=== PATIENT | female | born 1945 | race Caucasian/White ===

== ENCOUNTER → 2017-08-04 10:54 | Outpatient (CLI) | payer MEDICARE, OTHER, SELFPAY ==
--- NOTE | 2017-08-04 | DI.MG.S_ITS ---
BILATERAL DIGITAL SCREENING MAMMOGRAM 3D/2D WITH CAD: 08/04/2017 CLINICAL: Routine screening. Family history of breast cancer. Comparison is made to exams dated: 10/31/2015 mammogram, 09/28/2014 mammogram, and 09/26/2013 mammogram - [facility]. The tissue of both breasts is extremely dense, which lowers the sensitivity of mammography. Current study was also evaluated with a Computer Aided Detection (CAD) system. No significant masses, calcifications, or other findings are seen in either breast. There has been no significant interval change. IMPRESSION: NEGATIVE There is no mammographic evidence of malignancy. A 1 year screening mammogram is recommended. This exam was interpreted at Station ID: [id number]. NOTE: For mammograms, a report in lay terms will be sent to the patient. Approximately 15% of breast malignancies will not be visualized mammographically. In the management of a palpable breast mass, a negative mammogram must not discourage biopsy of a clinically suspicious lesion. Electronically Signed By: Sharmin barr/shyla:08/04/2017 12:32:04 copy to: RAY SOUZA letter sent: Normal Exam ACR BI-RADS Category 1: Negative 3341F
== END ==
PROVIDERS: PCP Internal Medicine; Visit Provider Internal Medicine
DX: Z12.31 Encounter for screening mammogram for malignant neoplasm of breast (principal); Z80.3 Family history of malignant neoplasm of breast
CPT/HCPCS: 77063; 77067

== ENCOUNTER → 2018-11-10 14:42 | Outpatient (CLI) | payer MEDICARE, OTHER, SELFPAY ==
--- NOTE | 2018-11-10 | DI.MG.S_ITS ---
BILATERAL DIGITAL SCREENING MAMMOGRAM 3D/2D WITH CAD: 11/10/2018 CLINICAL: Routine screening. Family history of breast cancer. Comparison is made to exams dated: 08/04/2017 mammogram, 10/31/2015 mammogram, 09/28/2014 mammogram, and 09/26/2013 mammogram - [facility]. The tissue of both breasts is extremely dense, which lowers the sensitivity of mammography. Current study was also evaluated with a Computer Aided Detection (CAD) system. No significant masses, calcifications, or other findings are seen in either breast. There has been no significant interval change. IMPRESSION: NEGATIVE There is no mammographic evidence of malignancy. A 1 year screening mammogram is recommended. This exam was interpreted at Station ID: [id number]. NOTE: For mammograms, a report in lay terms will be sent to the patient. Approximately 15% of breast malignancies will not be visualized mammographically. In the management of a palpable breast mass, a negative mammogram must not discourage biopsy of a clinically suspicious lesion. Electronically Signed By: Jacobo weinstein/shyla:11/10/2018 19:07:02 copy to: RAY SOUZA letter sent: Normal Exam ACR BI-RADS Category 1: Negative 3341F
== END ==
PROVIDERS: PCP Internal Medicine; Visit Provider Internal Medicine
DX: Z12.31 Encounter for screening mammogram for malignant neoplasm of breast (principal); Z80.3 Family history of malignant neoplasm of breast; M81.0 Age-related osteoporosis without current pathological fracture; Z78.0 Asymptomatic menopausal state; Z82.62 Family history of osteoporosis
CPT/HCPCS: 77063; 77067; 77080; 77081

== ENCOUNTER → 2020-10-09 13:48 | Outpatient (CLI) | payer MEDICARE, OTHER, SELFPAY ==
--- NOTE | 2020-10-09 | DI.CT.S_ITS ---
PROCEDURE: CT ABDOMEN WO/W CON INDICATIONS: Cyst of kidney TECHNIQUE: Optional 5 mm thick noncontrast images acquired from the diaphragm to the iliac crests. After the administration of intravenous contrast, 5 mm thick images again acquired from the diaphragm to the iliac crests in the arterial and urographic phases. 5 mm thick coronal and sagittal reformats were then acquired. For radiation dose reduction, the following was used: automated exposure control, adjustment of mA and/or kV according to patient size. COMPARISON: CR, CHEST 2 VIEW, 11/16/2012, 12:52. [facility], RG, CT THORAX WITH CONTRAST, 04/16/2005, 12:20. [facility], CT, THORAX WITH CONTRAST, 11/21/2008, 9:31. [facility], US, US RENAL COMPLETE, 08/23/2020, 14:21. [facility], CT, CT KUB, 08/01/2020, 11:41. FINDINGS: Image quality: Excellent. Lung bases: Bronchiectasis and mucous plugging at the right lung base. There is a new mucous plug at the posterior aspect in the short-term interval. The bronchiectasis is progressed compared to 2008. No pleural effusion. Small hiatal hernia. Genitourinary: Right kidney inferior pole enhancing mass measuring 5 x 4.8 cm, (5/29). No abrupt washout. The lesion is mostly exophytic. The lesion has a circumscribed margin and is fairly homogeneous. No calcifications are seen within the mass. No hydronephrosis. A few additional simple appearing renal cysts bilaterally. Several cortical hypodensities which are too small to further characterize. There is a nonobstructing calculus at the right renal hilum measuring 0.6 cm, (2/27). Other solid organs: Liver is normal in size and enhancement. A simple cyst at the inferior right lobe of the liver. Gallbladder is not distended. No calcified gallstones. No significant biliary ductal dilatation. There is a small cyst at the tail the pancreas measuring 1.3 cm, (3/18). No significant pancreatic ductal dilatation seen. Spleen is normal in size and enhancement. No adrenal nodules. Peritoneum and bowel: Unenhanced bowel loops are normal in wall thickness and caliber. Prominent stool in the right colon. No free fluid or air. Nodes and vessels: No retroperitoneal or mesenteric adenopathy by size criteria. Aorta and inferior vena cava are normal in caliber. Bones: No suspicious bony lesions. Severe scoliosis. Miscellaneous: No ventral hernias. IMPRESSION: 1. Right kidney inferior pole exophytic solid enhancing mass measuring 5 cm. Renal cell carcinoma until proven otherwise. -MRI renal protocol may be helpful for further characterization. Ultrasound or CT-guided biopsy could also be considered. 2. Cylindrical bronchiectasis at the right lung base. This has progressed compared to 2009. There is associated mucous plugging. -CT of the chest to evaluate the lungs and left upper lobe abnormality seen on remote CT is recommended if not recently performed. 3. Small cyst at the distal tail the pancreas measuring 1.3 cm. This could represent a small IPMN. -MRI would also be helpful for further characterization. 4. Severe scoliosis. 5. Small nonobstructing calculus in the right kidney. Dictated by: Jacobo Novak M.D. on 10/09/2020 at 14:36 Approved by: Jacobo Novak M.D. on 10/09/2020 at 15:09
== END ==
PROVIDERS: PCP Internal Medicine; Referring Provider Urology; Visit Provider Urology
DX: N28.1 Cyst of kidney, acquired (principal); C64.1 Malignant neoplasm of right kidney, except renal pelvis; J47.9 Bronchiectasis, uncomplicated; K86.2 Cyst of pancreas; M41.9 Scoliosis, unspecified
CPT/HCPCS: 74170

== ENCOUNTER → 2022-10-09 | Outpatient (CLI) | payer MEDICARE, OTHER, SELFPAY ==
--- NOTE | 2022-10-09 | DI.RAD.S_ITS ---
Bone Density Report Name: KANDY MCGOWAN Age: 77 Sex: Female Ethnicity: White Date of : 1945 Indication: postmenopausal; screening for osteoporosis; Referring Provider: MARIANA ESCOBAR Study: Bone densitometry was performed. Exam Date: October 09, 2022 Accession number: [id number] Bone Density: Region BMD T-score Z-score Classification Femoral Neck (Left) 0.524 -2.9 -0.7 Osteoporosis Total Hip (Left) 0.690 -2.1 -0.2 Osteopenia Femoral Neck (Right) 0.634 -1.9 0.2 Osteopenia Total Hip (Right) 0.724 -1.8 0.1 Osteopenia Total Hip Mean 0.707 -2.0 -0.1 Osteopenia Total Forearm (Left) 0.389 -3.5 -0.8 Osteoporosis 1/3 Forearm (Left) 0.541 -2.5 0.3 Osteoporosis UD Forearm (Left) 0.239 -3.5 -1.5 Osteoporosis World Health Organization criteria for BMD impression classify patients as: Normal (T-score at or above -1.0), Osteopenia (T-score between -1.0 and -2.5), or Osteoporosis (T-score at or below -2.5). 10-year Fracture Risk: FRAX not reported because: Some T-score for Spine Total or Hip Total or Femoral Neck at or below -2.5 Treated for osteoporosis Impression: The patient has osteoporosis, based on the Left Femoral Neck T-score. Discussion: It is important to ask patients whether they are taking their medications and to encourage continued and appropriate compliance with their osteoporosis therapies to reduce fracture risk. It is also important to review their risk factors and encourage appropriate calcium and vitamin D intakes, exercise, fall prevention and other lifestyle measures. Follow-Up: Consider a repeat BMD and Vertebral Fracture Assessment (VFA) exam in 2 years or sooner if medically necessary, to reassess this patient's status. Reported by: LUIZ ACOSTA M.D. on 10/13/2022 3:59:00 PM.
--- NOTE | 2022-10-09 | DI.MG.S_ITS ---
BILATERAL DIGITAL SCREENING MAMMOGRAM 3D/2D WITH CAD: 10/09/2022 CLINICAL: Routine screening. Family history of breast cancer. Comparison is made to exams dated: 12/05/2020 mammogram - [facility], 11/10/2018 mammogram, and 08/04/2017 mammogram - [facility]. Both breasts are extremely dense, which lowers the sensitivity of mammography (category d />75% glandular tissue). Current study was also evaluated with a Computer Aided Detection (CAD) system. There is a new architectural distortion in the right breast at 7 o'clock posterior depth. No other significant masses, calcifications, or other findings are seen in either breast. IMPRESSION: INCOMPLETE: NEEDS ADDITIONAL IMAGING EVALUATION The new architectural distortion in the right breast is indeterminate. Additional views with possible ultrasound are recommended. Based on the Tyrer Cuzick model (a risk assessment model) the patient's lifetime risk is 13.5% and her 10 year risk is 0.0%. According to the ACR, ACS, and NCCN guidelines, an annual breast MRI exam along with mammogram is recommended if the patient's lifetime risk is 20% or greater. This exam was interpreted at Station ID: [id number]. NOTE: For mammograms, a report in lay terms will be sent to the patient. Approximately 15% of breast malignancies will not be visualized mammographically. In the management of a palpable breast mass, a negative mammogram must not discourage biopsy of a clinically suspicious lesion. Electronically Signed By: Alexa gerard/shyla:10/09/2022 14:52:19 letter sent: Additional Imaging Needed ACR BI-RADS Category 0: Incomplete 3340F
== END ==
PROVIDERS: PCP Internal Medicine; Referring Provider Family Medicine; Visit Provider Family Medicine
DX: Z80.3 Family history of malignant neoplasm of breast (principal); Z12.31 Encounter for screening mammogram for malignant neoplasm of breast; Z13.820 Encounter for screening for osteoporosis; M81.0 Age-related osteoporosis without current pathological fracture; Z78.0 Asymptomatic menopausal state
CPT/HCPCS: 77063; 77067; 77080

== ENCOUNTER → 2022-11-06 13:39 | Outpatient (CLI) | payer MEDICARE, OTHER, SELFPAY ==
--- NOTE | 2022-11-06 | DI.MG.S_ITS ---
UNILATERAL RIGHT DIGITAL DIAGNOSTIC MAMMOGRAM 3D/2D WITH ADDITIONAL VIEWS: 11/06/2022 CLINICAL: Additional evaluation requested from prior study. Comparison is made to exams dated: 10/09/2022 mammogram - [facility], 12/05/2020 mammogram - [facility], and 11/10/2018 mammogram - [facility]. The right breast is extremely dense, which lowers the sensitivity of mammography (category d />75% glandular tissue). The finding seen on recent screening mammogram did not persist with additional imaging and is consistent with superimposition of normal breast tissue. No other significant masses or calcifications are seen in the breast. IMPRESSION: INCOMPLETE: NEEDS ADDITIONAL IMAGING EVALUATION No mammographic evidence of malignancy. Recommend targeted right breast ultrasound for further evaluation, which will immediately follow this examination. Based on the Tyrer Cuzick model (a risk assessment model) the patient's lifetime risk is 13.5% and her 10 year risk is 0.0%. According to the ACR, ACS, and NCCN guidelines, an annual breast MRI exam along with mammogram is recommended if the patient's lifetime risk is 20% or greater. This exam was interpreted at Station ID: [id number]. NOTE: For mammograms, a report in lay terms will be sent to the patient. Approximately 15% of breast malignancies will not be visualized mammographically. In the management of a palpable breast mass, a negative mammogram must not discourage biopsy of a clinically suspicious lesion. Electronically Signed By: Darling Daniel M.D. esb/:11/07/2022 02:03:26 ACR BI-RADS Category 0: Incomplete 3340F
--- NOTE | 2022-11-06 | DI.US.S_ITS ---
PROCEDURE: US BREAST RT LIMITED COMPARISON: None. INDICATIONS: ADD VIEW RIGHT BREAST FINDINGS: IMPRESSION: Dictated by: Darling Daniel M.D. on 11/07/2022 at 13:47 Approved by: Darling Daniel M.D. on 11/07/2022 at 13:51
--- NOTE | 2022-11-06 15:10 | DI.US.S_ITS ---
Patient Name: KANDY MCGOWAN date: 1945 Sex: F Attending Physician: Jose Indications: Date: 11/12/2022 01:38 At the request of: MARIANA ESCOBAR Procedure: US breast RT limited LIMITED ULTRASOUND OF RIGHT BREAST AND AXILLA: 11/06/2022 CLINICAL: Patient returns today to evaluate a focal asymmetry in the right breast. Comparison is made to exams dated: 11/06/2022 mammogram - [facility], 12/05/2020 mammogram - [facility], 10/09/2022 mammogram, 11/10/2018 mammogram, 08/04/2017 mammogram, and 10/31/2015 mammogram - [facility]. Color flow and real-time ultrasound of the right breast 6-9 o'clock, and axilla regions were performed. Confirmatory ultrasound demonstrates no sonographic abnormality in the right breast lower outer quadrant. Director [employer]ilities Maintenance images were taken at 6, 7, 8, and 9 o'clock, 5 cm from the nipple. IMPRESSION: NEGATIVE Finding seen on recent screening mammogram is consistent with superimposition of normal breast tissue with confirmatory negative ultrasound. No mammographic or sonographic evidence of malignancy. A 1 year screening mammogram is recommended. Findings and recommendations were conveyed to the patient at the time of imaging completion. This exam was interpreted at Station ID: [id number]. Electronically Signed By: Darling samb/:11/12/2022 01:38:46 letter sent: Normal Exam Ultrasound BI-RADS: 1 Negative
== END ==
PROVIDERS: PCP Internal Medicine; Referring Provider Family Medicine; Visit Provider Family Medicine
DX: R92.8 Other abnormal and inconclusive findings on diagnostic imaging of breast (principal)
CPT/HCPCS: 76642; 77065; G0279

== ENCOUNTER → 2023-08-26 08:16 | Outpatient (CLI) | payer MEDICARE, OTHER, SELFPAY ==
[2023-08-26 08:58] LABS: Estimated Glomerular Filt Rate 51 mL/min (>60)
== END ==
PROVIDERS: PCP Internal Medicine; Referring Provider Radiology Diagnostic Radiology; Visit Provider Radiology Diagnostic Radiology
DX: Z85.528 Personal history of other malignant neoplasm of kidney (principal)
CPT/HCPCS: 36415; 82565

== ENCOUNTER → 2023-10-02 12:19 | Outpatient (CLI) | payer MEDICARE, OTHER, SELFPAY ==
[2023-10-02 12:53] LABS: Estimated Glomerular Filt Rate 54 mL/min (>60)
== END ==
PROVIDERS: PCP Internal Medicine; Referring Provider Radiology Diagnostic Radiology; Visit Provider Radiology Diagnostic Radiology
DX: Z85.528 Personal history of other malignant neoplasm of kidney (principal)
CPT/HCPCS: 36415; 82565

== ENCOUNTER → 2023-10-08 08:01 | Outpatient (CLI) | payer MEDICARE, OTHER, SELFPAY ==
--- NOTE | 2023-10-08 | DI.RAD.S_ITS ---
PROCEDURE: XR CHEST 2V INDICATIONS: Personal history of other malignant neoplasm of kidney TECHNIQUE: 2 views of the chest were acquired. COMPARISON: [facility], CR, XR CHEST 2 VIEWS, 10/17/2020, 14:30. FINDINGS: Surgical changes and devices: None. Lungs and pleura: Left lung is clear. Right lung again shows parenchymal scarring in the right base. This is increased slightly when compared to prior study. Appear to be thickening and bronchial mukherjee in the right lower lung. Findings are consistent with the developing bronchiectasis. Mediastinum: The heart is normal in size. There is calcification and tortuosity in the aorta. Compared to prior study retrocardiac density now present consistent with a moderate sized hiatal hernia. Bones and chest wall: S-shaped scoliosis again demonstrated in the thoracolumbar spine, no significant change from the study of the 2020. IMPRESSION: Increasing right lower lung parenchymal scarring, findings consistent with bronchiectasis. Hiatal hernia which developed since 2020. Dictated by: Rickey Chang M.D. on 10/08/2023 at 11:24 Approved by: Rickey Chang M.D. on 10/08/2023 at 11:34
--- NOTE | 2023-10-08 | DI.CT.S_ITS ---
PROCEDURE: CT ABDOMEN PELVIS W CON INDICATIONS: Personal history of other malignant neoplasm of kidney TECHNIQUE: After the administration of intravenous contrast, axial sections acquired from the lung bases to the pubic symphysis. Coronal and sagittal reformats were performed. For radiation dose reduction, the following was used: automated exposure control, adjustment of mA and/or kV according to patient size. COMPARISON: [facility], CT, CT ABDOMEN WO/W CON, 10/09/2020, 13:55. FINDINGS: Image quality: Diagnostic. Lower Chest: Bronchiectasis and mucous plugging of the right lung base is redemonstrated. Moderate hiatal hernia is increased compared to prior. ABDOMEN: Liver: No solid mass. Gallbladder: No radiopaque gallstones or wall thickening. Biliary ducts: No biliary dilation. Pancreas: Mild prominence of the pancreatic duct is similar to prior. Stable pancreatic tail cyst measuring 1.4 cm. Additional smaller cystic focus in the pancreatic tail measuring 5 mm is also stable. Spleen: Size is within normal limits. Adrenal Glands: No adrenal nodules. Kidneys and Ureters: Status post right nephrectomy. No hydronephrosis. No solid mass. No complex renal cystic lesion which requires follow up. Stomach and Bowel: Normal colonic caliber, without significant wall thickening. Diverticulosis without diverticulitis. Moderate stool burden. Peritoneum: No abnormal intraperitoneal fluid. No free air. Ventral Wall: No significant ventral hernia. Abdominal Nodes: No retroperitoneal or mesenteric adenopathy by size criteria. Vessels: Aorta and inferior vena cava are normal in size. Atherosclerotic vascular calcifications. PELVIS: Pelvic Organs: Unremarkable. Bladder: No bladder wall thickening, accounting for underdistention. Pelvic Nodes: No enlarged lymph nodes. Miscellaneous: No inguinal hernias are seen. Bones: No aggressive osseous abnormality. Decreased osseous mineralization. Levo scoliotic curvature. Multilevel degenerative changes of the spine. IMPRESSION: 1. Status post right nephrectomy. No definite findings concerning for recurrence or metastatic disease. 2. Moderate hiatal hernia is increased compared to prior. 3. Bronchiectasis at the right lung base with mucous plugging is similar to prior. 4. Pancreatic tail cysts are similar to prior and may represent IPMNs. MRI would be helpful for further characterization. 5. Prominence of the pancreatic duct is similar to prior. 6. Severe scoliotic curvature. Dictated by: Kermit Herrera M.D. on 10/08/2023 at 12:33 Approved by: Kermit Herrera M.D. on 10/08/2023 at 12:40
== END ==
PROVIDERS: PCP Internal Medicine; Referring Provider Urology; Visit Provider Urology
DX: Z85.528 Personal history of other malignant neoplasm of kidney (principal); Z08 Encounter for follow-up examination after completed treatment for malignant neoplasm; J47.9 Bronchiectasis, uncomplicated; T17.890A Other foreign object in other parts of respiratory tract causing asphyxiation, initial encounter; K44.9 Diaphragmatic hernia without obstruction or gangrene; K86.2 Cyst of pancreas; Z90.5 Acquired absence of kidney; M41.9 Scoliosis, unspecified
CPT/HCPCS: 71046; 74177; Q9967